=== PATIENT | female | born 1945 | race Caucasian/White ===

== ENCOUNTER 2017-03-31 10:24 | Outpatient (CLI) | payer MEDICARE, OTHER ==
[2017-03-31 11:37] LABS: ALT (SGPT) 18 U/L (8-55); AST (SGOT) 29 U/L (5-34); Albumin 4.2 g/dL (3.4-4.8); Alkaline Phosphatase 89 U/L (40-150); Anion Gap 13 mmol/L (10-20); BUN (Urea Nitrogen) 14 mg/dL (9.8-20.1); Bilirubin, Total 0.6 mg/dL (0.2-1.2); Calc. Creatinine Clearance 0 mL/min (70-130); Calcium 9.4 mg/dL (7.8-10.44); Carbon Dioxide 28 mmol/L (23-31); Chloride 100 mmol/L (98-107); Cholesterol 192 mg/dl (< 200 Desired); Estimated GFR-MDRD 80; Globulin 2.1 g/dL (2.4-3.5); Glucose 112 mg/dL (83-110); HDL Cholesterol 97 mg/dL (>60 Neg Risk); LDL Cholesterol, Calculated 88 mg/dL; Potassium 4.4 mmol/L (3.5-5.1); Protein, Total 6.3 g/dL (6.0-8.3); Sodium 137 mmol/L (136-145); Triglycerides 35 mg/dL (Less than 150)
== END 2017-03-31 10:25 | disposition home or self-care (01) ==
LOC: MADLABBHPM 10:24
PROVIDERS: ATTEND Family Medicine
DX: I10 Essential (primary) hypertension (principal); E78.00 Pure hypercholesterolemia, unspecified
CPT/HCPCS: 36415; 80053; 80061

== ENCOUNTER 2018-02-04 09:38 | Outpatient (CLI) | payer MEDICARE, OTHER | END 2018-02-04 09:39 | disposition home or self-care (01) | LOC: MADLAB 09:38 | PROVIDERS: ATTEND Internal Medicine | DX: I11.9 Hypertensive heart disease without heart failure (principal); M17.9 Osteoarthritis of knee, unspecified; I77.4 Celiac artery compression syndrome; M25.511 Pain in right shoulder; Z79.899 Other long term (current) drug therapy | CPT/HCPCS: 82274 ==

== ENCOUNTER 2020-09-11 09:55 | Emergency (ER) | payer MEDICARE, OTHER ==
[2020-09-11] MEDS ORDERED: Ibuprofen 400 MG TAB ONE (10:34)
[2020-09-11] MEDS ORDERED: Acetaminophen 500 MG TAB ONE (10:34)
--- NOTE | 2020-09-11 10:36 | RAD ---
RIGHT SHOULDER 3 VIEWS: Date: 09/11/2020 HISTORY: Shoulder pain status post fall. FINDINGS: There are some moderate arthritic changes of the AC and glenohumeral joint noted. The humeral head is also somewhat high-riding, suggesting the presence of possibly an underlying rotator cuff tear. No a cute fracture. IMPRESSION: Arthritic changes of the shoulder. Findings that would suggest the possibility of a chronic rotator c uff tear. POS: [facility]
== END 2020-09-11 10:49 | disposition home or self-care (01) ==
LOC: MADERS 09:55
DX: M75.101 Unspecified rotator cuff tear or rupture of right shoulder, not specified as traumatic (principal); K21.9 Gastro-esophageal reflux disease without esophagitis; I73.9 Peripheral vascular disease, unspecified; I10 Essential (primary) hypertension; F41.9 Anxiety disorder, unspecified; F32.9 Major depressive disorder, single episode, unspecified; M19.90 Unspecified osteoarthritis, unspecified site; I25.10 Atherosclerotic heart disease of native coronary artery without angina pectoris; Z79.899 Other long term (current) drug therapy; Z79.82 Long term (current) use of aspirin